=== PATIENT | female | born 1960 | race Caucasian/White ===

== ENCOUNTER 2019-04-25 11:47 | Inpatient (IN) | payer OTHER ==
[~2019-04-25] VITALS: Ht 162.6 cm; Wt 65.8 kg
--- NOTE | ~2019-04-25 | D ---
[facility] [place] [address] DISCHARGE SUMMARY Name: ELVIA RUBIO Room #: 527B-B DIS IN M.R.#: [id number] Admission: 04/25/19 ������������������ Attend Phys: James Natarajan DO Discharge: 05/03/19 ������������������ Date of : 62 Report #: [id number] THIS REPORT FOR: //name// CC: James Natarajan GAVIN BUSTAMANTE DATE OF SERVICE: 05/03/2019 ATTENDING PHYSICIAN: James Natarajan DO DICE TABLE OPERATOR: James Raymundo MD DISCHARGE DIAGNOSES: Major neurocognitive disorder with behavioral disturbance, unspecified etiology, improved; history of schizophrenia; history of intellectual disability, likely moderate. DISCHARGE PLAN: Discharged to [facility]. DIET: Mechanically altered chopped. No supplements. ACTIVITY LEVEL: As tolerated. DISCHARGE MEDICATIONS: Depakote ER 750 mg p.o. at bedtime, lamotrigine 75 mg p.o. daily, Depakote for mood stabilization, lamotrigine for seizures. Keppra 500 mg p.o. b.i.d. for seizures, chlorpromazine ____ mg p.o. t.i.d. at 0900, 1300 and 1700. Famotidine 20 mg p.o. at bedtime p.r.n. GI upset, ferrous sulfate 325 mg p.o. daily, levothyroxine 100 mcg p.o. daily for hypothyroidism, triamcinolone cream 0.1% applied twice per day for 10 days to affected area. LABORATORY DATA: Most recently on 04/26/2019 H and H 11.2 and 33.5, white count 4.4, platelet count 150. Chemistries from 04/26/2019, sodium 138, potassium 3.9, chloride 103, bicarbonate 28, anion gap 7, BUN 17, creatinine 0.8, estimated GFR 74, glucose 118, calcium 9.9, AST 18, ALT 19, total bilirubin 0.3. Urine 3+ leukocyte esterase, positive white blood cells, positive bacteria. Toxicology showed a Depakote level of 78 on 04/30/2019 at 1745. REASON FOR ADMISSION: The patient was having agitation, resistive to care. HOSPITAL COURSE: The patient was admitted to Geriatric Psychiatry Unit. Her Depakote was added on and titrated. She still had a lot of yelling and some aggressiveness. Did a titration of chlorpromazine. Since the dosing for lamotrigine is roughly twice the level of Depakote, I elected to maintain the lamotrigine dose to 75 mg since it was relatively low. No evidence of rashes, lesions caused by drugs at the time of discharge. Vital signs on day of discharge is as follows: Temperature of 36.3, pulse 78, respirations 16, BP 120/80, O2 sat 100%. For electrocardiograph monitoring, electrocardiogram was [facility] [address] [place] [address] DISCHARGE SUMMARY Name: ELVIA RUBIO Room #: 527B-B DIS IN M.R.#: [id number] Admission: 04/25/19 ������������������ Attend Phys: James Natarajan DO Discharge: 05/03/19 ������������������ Date of : 62 Report #: [id number] reviewed, but I could not find at this time to quote. Anyway, the patient tolerated the medication well. At time of discharge, no suicidal or homicidal ideations, auditory, visual, or tactile hallucinations. PHYSICAL EXAMINATION: MUSCULOSKELETAL: Largely wheelchair bound. MENTAL STATUS EXAMINATION: This is a well-developed, disheveled female appearing older than stated age. Attention limited. Concentration limited. Speech, increased rate, poor enunciation. No psychomotor retardation. Insight impaired. Judgment impaired. Fund of knowledge well below average. Prognosis for this patient is guarded given prior history of dementia and poor tolerance of challenging situations. ��������������������������������������������� ���������������������������������������� By: ��������������������������������������������� [id number] James Natarajan, DO /nt
[2019-04-25 11:48] VITALS: BP 127/82
[2019-04-25 12:19] LABS: HEMATOCRIT 33.3 % (37.0-47.0); HEMOGLOBIN 11.2 gm/dL (12.0-15.0); MCH 28.5 pg (26.0-34.0); MCHC 33.7 g/dL (28.0-37.0); MCV 84.5 fL (80.0-100.0); PLATELET COUNT 155 thou/uL (150-400); RBC 3.94 mil/uL (4.20-5.00); RDW 14.9 % (10.5-14.5); WBC 6.3 thou/uL (4.0-11.0)
[2019-04-25 12:22] LABS: URINE BILIRUBIN NEGATIVE (Negative); URINE BLOOD NEGATIVE (Negative); URINE CLARITY SL CLOUDY; URINE COLOR YELLOW; URINE GLUCOSE-RANDOM* NEGATIVE (Negative); URINE KETONES NEGATIVE (Negative); URINE LEUKOCYTES-REFLEX 3+ (Negative); URINE NITRITE-REFLEX NEGATIVE (Negative); URINE PROTEIN (DIPSTICK) NEGATIVE (Negative); URINE SPECIFIC GRAVITY <= 1.005 (1.005-1.035); URINE UROBILINOGEN 0.2 E.U./dl (0.2-1.0)
[2019-04-25 12:31] LABS: ALBUMIN 3.4 g/dL (3.4-5.0); CREATININE 0.8 mg/dL (0.6-1.0); DIRECT BILIRUBIN 0.1 mg/dL (<0.1-0.3); POTASSIUM 3.9 mmol/L (3.5-5.1); TOTAL BILIRUBIN 0.3 mg/dL (<0.1-1.0); TOTAL PROTEIN 7.8 g/dL (6.4-8.2)
[2019-04-25] MEDS ORDERED: ACETAMINOPHEN325 M1 PO (12:33)
[2019-04-25] MEDS ORDERED: BENZTROPINE MESY2 MG PO (12:33)
[2019-04-25] MEDS ORDERED: IRON325 PO (12:33)
[2019-04-25] MEDS ORDERED: LAMICTAL XR100 MG PO (12:34)
[2019-04-25] MEDS ORDERED: KEPPRA 500 MG500 M1 PO (12:34)
[2019-04-25] MEDS ORDERED: SYNTHROID100 MC1 PO (12:34)
[2019-04-25] MEDS ORDERED: ATIVAN1 MG PO (12:34)
[2019-04-25] MEDS ORDERED: SEROQUEL 25 MG25 M1 PO (12:35)
[2019-04-25] MEDS ORDERED: ARTIFICIAL TEAR15 M1 OPHTHALMIC (12:35)
[2019-04-25] MEDS ORDERED: TRIAMCINOLONE A80 G2 TOP (12:38)
[2019-04-25 12:39] LABS: CASTS None Seen /LPF (None Seen); SQUAMOUS 0-3 Few /LPF (0-3); URINE RBC None Seen /HPF (0-2)
[2019-04-25 12:40] LABS: CRYSTALS None Seen /LPF (None Seen)
[2019-04-25 12:49] LABS: ABSOLUTE NEUTROPHILS 2.8 thou/uL (1.4-8.2); PLATELET ESTIMATE NORMAL
[2019-04-25 12:54] LABS: CALCIUM 9.9 mg/dL (8.5-10.1)
[2019-04-25 13:49] VITALS: BP 116/62
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
[2019-04-25 15:42] VITALS: BP 139/78
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
--- NOTE | 2019-04-26 06:12 | NUR ---
SLEPT 6.2 HOURS
[2019-04-26 06:13] LABS: HEMATOCRIT 33.5 % (37.0-47.0); HEMOGLOBIN 11.2 gm/dL (12.0-15.0); MCH 28.7 pg (26.0-34.0); MCHC 33.5 g/dL (28.0-37.0); MCV 85.8 fL (80.0-100.0); RBC 3.9 mil/uL (4.20-5.00); RDW 15.4 % (10.5-14.5); WBC 4.4 thou/uL (4.0-11.0)
[2019-04-26 09:30] VITALS: BP 118/66
--- NOTE | 2019-04-26 15:14 | NUR ---
ALERT AND ORIENTED TO NAME ONLY. SPEECH RAMBLING AND DIFFICULT TO UNDERSTAND. SPEECH VERY LOUD ENCOURGED TO SPEAK SOFTER. BEHAVIOR MUCH IMPROVED AFTER GEODON. TOOK MEDICATIONS WITHOUT DIFFICULTY SWALLOWED PILLS WHOLE. GOOD APPETITE FOR MEALS. INCONTINENT OF URINE - WEARING BRIEF. MOBILITY AT WHEELCHAIR LEVEL AND HOLDS ONTO 2 DOLLS AND STUFFED ANIMAL.
[2019-04-26 17:43] VITALS: BP 118/66
[2019-04-26 19:38] VITALS: BP 137/75
--- NOTE | 2019-04-26 22:19 | NUR ---
Pt very loud when speaking, talks to self and peers in dayroom. Wanders in halls by propeling herself in w/c. Pt compliant with meds and hs snack. Pt compliant with adl care. Pt has snoopy and two dolls with her while in chair and in bed. Pt does wander into peers rooms while in w/c. Incontinent.
[2019-04-27 08:00] VITALS: BP 120/79
[2019-04-27 16:47] VITALS: BP 120/79
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
[2019-04-27 19:44] VITALS: BP 130/70
--- NOTE | 2019-04-27 22:22 | NUR ---
ASSUMED CARE @ 1900, IN W/C IN DAY ROOM. SPEAKING IN LOUD VOICE WITH SPEACH DIFFICULT TO UNDERSTAND. FEEDS SELF HOLDING SPOON IN THUMB AND INDEX FINGER. LIKES SNACK FOODS. HAS A STUFFED ANIMAL AND 2 DOLLS WITH HER. TOOK MEDS WHOLE, ONE AT A TIME. REFUSED TO DRINK WATER AFTER TAKING PILLS, THEN PUSHED WATER CUP OVER SPILLING ON THE TABLE. INCONTINENT OF B&B. WILL CONTINUE TO MONITOR Q 12 MINUTES FOR PATIENT SAFETY.
--- NOTE | 2019-04-28 06:23 | NUR ---
SLEPT RESTLESSLY FOR 7.0 HOURS.
--- NOTE | 2019-04-28 11:03 | NUR ---
[id number]: Report rec from noc shift, care assumed. Pt uncooperative with staff doing ADL care, yelling out, with no specific subject. Feeds self with set-up assist, appetitie fair, consumed 50% of meal, takes meds crushed and in applesauce, does not allow nurse to spoon applesauce with meds to her, nurse remained at bedside to monitor intake of meds. PRN Zyprexa 5mg IM given for agitation. 0935: Pt transferred x2 staff from bed to w/c, to DR for interaction and snack, pt not pleasant with other pts, pt seperated from others to avoid confrontation.
--- NOTE | 2019-04-28 17:30 | NUR ---
CHIDI sent updates to [facility] [phone]
[2019-04-28 19:42] VITALS: BP 138/81
--- NOTE | 2019-04-28 20:48 | NUR ---
ASSUMED CARE @ 1900, IN W/C PROPELLING SELF BETWEEN THE DAY ROOM AND HER BEDROOM. DOES NOT HAVE HER DOLLS WITH HER. ALLOWED ASSESSMENT AND GAVE THIS NURSE A HUG. COOPERATIVE WITH CARE.
--- NOTE | 2019-04-29 03:31 | NUR ---
TOOK 2100 MEDS IN ICE CREAM, FED SELF THE ICE CREAM WITH A SPOON. IN BED, DOLLS AND STUFFED TOY AT SIDE. LOTION APPLIED TO PSORIASIS ON ARMS AND LEGS. SLEEPING SOUNDLY, EYES CLOSED, RESPIRATIONS EVEN AND UNLABORED. WILL CONTINUE TO MONITOR Q 12 MINUTES FOR PATIENT SAFETY.
[2019-04-29 03:35] VITALS: BP 138/81
--- NOTE | 2019-04-29 05:27 | NUR ---
INCONTINENT CARE GIVEN. AM MEDS PROVIDED IN APPLESAUCE WHICH PT SPOONS INTO HER MOUTH FOR HERSELF. SHE ATE THE ENTIRE CUP OF APPLESAUCE, THEN SAID NIGHT NIGHT, AND THE LIGHTS WERE TURNED OUT FOR A LITTLE MORE SLEEP. WILL CONTINUE TO MONITOR Q 12 MINUTES FOR PATIENT SAFETY.
[2019-04-29 07:30] VITALS: BP 120/82
--- NOTE | 2019-04-29 08:45 | NUR ---
PT OUT IN DINNING ROOM THIS AM. PT REFUSED TO HAVE LUNGS ASSESSED TO BACK. PT SAID ONLY IN THE FRONT. PT ABLE TO FEED SELF. PT HAS LEFT HAND CONTRACTED. PT HAS PSORISIS TO ELBOWS AND NOSE CREASE. PT DOSN'T LIKE THE LOTION PUT ON FACE. PT IN W/C, ABLE TO MOBILIZE SELF BY FEET. PT REPEATS NURSE, SUCH LAUGHING. PT TAKING MEDS WHOLE. PT LIKES TO DO THINGS FOR SELF IN ABLE.
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
--- NOTE | 2019-04-29 11:23 | NUR ---
PT FATHER HERE TO VISIT. PT HAPPY TO SEE HIM. HE HAD CAME TO UNIT TOO EARLY AT 0945 TO VISIT. PT FATHER HAD TO COME BACK DURING VISITING HOURS. PT REFUSED TO HAVE LOTION APPLIED TO ARMS AND NOSE CREASES.
--- NOTE | 2019-04-29 12:30 | NUR ---
PT TAKING PO MEDS APPROPRIATLY.
[2019-04-29 14:23] VITALS: BP 120/82
--- NOTE | 2019-04-29 15:00 | NUR ---
ASSISTED PT IN SHOWER. PT YELLING THE WHOLE TIME. PT WAS SLIGHTLY COMBATIVE DURING BATHING WITH RT ARM. PT REFUSING FOR NURSE TO SEE LEFT HAND THAT IS CONTRACTED. THUMB NAIL TO LEFT HAND IS LONG. REFUSED NURSE TO CLEAN LEFT HAND.
[2019-04-29 20:06] VITALS: BP 144/76
[2019-04-29 22:53] VITALS: BP 144/76
--- NOTE | 2019-04-29 23:58 | NUR ---
PATIENT AWAKENED FROM SLEEP CRYING OUT AND FRANTIC. I WENT TO HER AND SHE WAS LOOKING FOR FAMILY MEMBERS AND STATES SHE COULDN'T FIND THEM. SHE KEPT CRYING LOUDER AND UNABLE TO CONSOLE RIGHT AWAY. GAVE HER ONE OF OF HER DOLLS AND SNOOPY AND SHE HELD ON TO THEM. OTHER STAFF TRIED TO CONSOLE ALSO. WE LEFT ROOM AND SHE CONTINUED TO TALK TO HERSELF AND WIMPER. OLANZAPINE 5MG IM GIVEN WITHOUT INCIDENT. PATIENT STATES SHE IS NOT COLD WHEN OFFERED A BLANKET. REFUSED THE DOLLS AFTER THIS INJECTION BUT IS QUIETLY SPEAKING TO HERSELF. AND RESTING. WILL CONTINUE TO MONITOR.
[2019-04-30 08:30] VITALS: BP 133/75
--- NOTE | 2019-04-30 08:45 | NUR ---
PT UP THIS AM IN W/C. PT EATING BREAKFAST X2 TRAYS AND CERIAL. PT STATED SHE WAS HUNGRY TODAY. PT HAS PSORISIS TO ARMS, LOWER LEGS, AND NOSE CREASE. PT ABLE TO FEED SELF, LEFT HAND CONATRACTED. PT NEEDS ASSISTANCE WITH TRANSFERS AND ADL'S. PT YELLS OUT AT TIMES. MIMICS PEOPLE LAUGHS, YELLS AT OTHER PATIENTS ALSO.
--- NOTE | 2019-04-30 17:43 | NUR ---
PT COMPLIANT WITH MEDS AND ATTENDING GROUP. NOT LOUD AND YELLING TODAY.
[2019-04-30 19:38] VITALS: BP 115/66
[2019-05-01 00:18] VITALS: BP 115/66
--- NOTE | 2019-05-01 02:53 | NUR ---
PATIENT PLEASANT AND COOPERATIVE WHILE UP IN DAYROOM BEFORE GOING TO BED THIS EVENING. ONCE IN BED PATIENT VERY COMBATIVE WHEN APPLYING TRIAMCINOLONE LOTION TO PSORIASIS ON LEGS/BUTTOCKS/ AND AROUND NOSE. PATIENT HAS HER SNOOPY, AND 2 BABY DOLLS WITH HER IN BED. PT WAS ABLE TO SHOW ME THE NAIL EMBEDDED TAYLOR ON INSIDE PALMS OF HANDS FROM HER NAILS. TRIED TO CLEAN AREA AND APPLY ROLLED UP DRY WASH CLOTH TO KEEP NAILS FROM HURTING HER. SHE REJECTED THIS IDEA AND WAS VERY COMBATIVE AND WOULD NOT ALLOW ME TO LOOK ANYMORE AT HANDS. PT INITIALLY FELL TO SLEEP OKAY. SHE BEGAN CALLING OUT AROUND 0030 AND WHEN I WENT TO CHECK ON HER SHE WAS C/O NOSE NARES SORE FROM PSORIASIS AND SCABS. APPLIED MORE TRIAMCINOLONE LOTION TO AREA. PATIENT WAS DRY AT THIS POINT ALSO. PATIENT BEGAN TALKING AND YELLING OUT DISORGANIZED THOUGHTS. DENIES PAIN. SAT WITH HER AND LISTENED AND TRIED TO CONSOLE AND GET HER TO RELAX. WAS NOT SUCCESSFUL. LEFT THE ROOM AND PATIENT ONCE AGAIN BEGAN TALKING LOUDLY, AND SCREAMING OUT AND WAS VERY AGITATED. AT 0105 OLANZAPINE 5MG IM GIVEN TO PATIENT. THIS NURSE SAT WITH HER FOR 20 MINUTES LISTENING TO HER TALK HER DISORGANIZED THOUGHTS UNTIL SHE BEGAN TO GET SLEEPY. PT SLEEPING AT THIS TIME. WILL CONTINUE TO MONITOR.
[2019-05-01 07:00] VITALS: BP 136/72
--- NOTE | 2019-05-01 15:59 | NUR ---
CHIDI met with Obie the adminstrator from [facility]. CHIDI mention that pt will be d/c on Wednesday, May 01, 2019. Obie mention that his SW will send a referral to [facility] due to her behavior. CHIDI explained that [facility] has several requirements to be accepted into the [facility]. CHIDI explained that the pt would have to come back to [facility], and then moved to [place]. CHIDI will follow-up with pt upon d/c.
--- NOTE | 2019-05-01 16:36 | NUR ---
PATIENT ALERT, LOUD, DISRUPTIVE AND INAPPROPRIATE AND REFUSES MEDS UNLESS SHE CAN BE COAXED INTO TAKING THEM. PATIENT'S FATHER SPOKE WTIH PATIENT IN MORNING AND AFTERNOON VISITING HOUR UNDER SUPERVISION OF THE STAFF. PATIENT TOOK MOST OF HER MEDS CRUSHED IN PUDDING AND ALLOWED FEMALE STAFF TO APPLY CREAM FOR PSORIASIS BUT COMPLAINED ABOUT THE CREAM. PATIENT DOES NOT APPEAR TO UNDERSTAND IMPORTANCE OF MEDICATION. PATIENT VERY DIFFICULT TO UNDERSTAND BECAUSE MUMBLING OF WORDS.
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
[2019-05-01 20:06] VITALS: BP 124/61
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
[2019-05-02 08:17] VITALS: BP 118/70
--- NOTE | 2019-05-02 10:48 | NUR ---
[id number]: Report rec from [facility] shift, care assumed. Up in w/c, to DR, feeds self, appetite good, consumed 100% of meal, takes fluids w/o difficulty. Meds crushed, given with applesauce. Attends group therapy with minimal participation. Occasional verbal outburst noted, resistant to re-direct.
--- NOTE | 2019-05-02 11:54 | NUR ---
Date of Admission: 04/25/19 Date of Activity Therapy Assessment: 04/28/19 Activity Goal: Increase social and communication skills. Initial Goal: 1 Group activity/day Weekly progress towards goal: On track Group participation level: Full Behaviors observed: Patient's participation is increasingly consistent. At times pt can be hyperverbal and loud, disrupting groups and milieu. Patient has required less redirection throughout last few days. Patient especially enjoys music. Plan: No change towards goal
[2019-05-02 20:13] VITALS: BP 112/70
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
--- NOTE | 2019-05-03 07:45 | NUR ---
PT UP X1 STAFF TO W/C. PT WAS INCON OF URINE IN BED. PT HAS BRIEF ON. PT UNABLE TO TELL IF NEEDING TO US BATHROOM. PT NOT YELLING OUT VERY LOUD. PT PARTICPATING WITH CARES WITHOUT AGGRESSIVE BEHAVIOR. PT ALLOWED ASSESSMENT WITH THIS NURSE. PT HAS DRY SKIN TO LOWER LEGS, REDDNESS TO BUTTOCKS AREA FROM WET BRIEF. DRYNESS TO UPPER ARMS.
[2019-05-03 08:00] VITALS: BP 120/80
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
[2019-05-03] MEDS ORDERED: DIVALPROEX SOD500 M1 PO (11:11)
[2019-05-03] MEDS ORDERED: KEPPRA 500 MG500 M1 PO (11:12)
[2019-05-03] MEDS ORDERED: LAMICTAL 25 MG25 MG PO (11:12)
[2019-05-03] MEDS ORDERED: CHLORPROMAZINE25 M3 PO (11:16)
[2019-05-03] MEDS ORDERED: PEPCID20 MG PO (11:21)
[2019-05-03] MEDS ORDERED: TRIAMCINOLONE A80 G2 TOP (11:22)
--- NOTE | 2019-05-03 12:15 | NUR ---
PT ABLE TO TAKE MEDS WHOLE WITH NO ISSUES.
--- NOTE | 2019-05-03 12:30 | NUR ---
PT TAKEN TO ROOM TO POTTY. PT BRIEF DRY. PT DID HAVE LITTLE VOID. PT YELLING AT NURSE AND AID. TOLD PT TO LOWER VOICE, PT DELIBERATLY YELLING.
--- NOTE | 2019-05-03 13:00 | NUR ---
PT LEFT VIA W/C VAN TO [facility].
== END 2019-05-03 13:00 | DRG 884 ==
LOC: ER 11:47 → SBH 12:56 → EROBS 12:56 → SBH 13:25
PROVIDERS: Emergency Medicine; Nurse Practitioner Psychiatric/Mental Health; ADMIT Psychiatry & Neurology Psychiatry
DX: F01.51 Vascular dementia, unspecified severity, with behavioral disturbance (principal); N39.0 Urinary tract infection, site not specified; F25.9 Schizoaffective disorder, unspecified; E11.9 Type 2 diabetes mellitus without complications; Z66 Do not resuscitate; G40.909 Epilepsy, unspecified, not intractable, without status epilepticus; E03.9 Hypothyroidism, unspecified; I10 Essential (primary) hypertension; G20 Parkinson's disease; F41.9 Anxiety disorder, unspecified; L40.9 Psoriasis, unspecified; Z87.891 Personal history of nicotine dependence; Z79.899 Other long term (current) drug therapy; Z88.8 Allergy status to other drugs, medicaments and biological substances
CPT/HCPCS: 10880